=== PATIENT | female | born 1935 | race Caucasian/White ===

== ENCOUNTER 2017-12-29 13:39 | Emergency (ER) | payer OTHER, MEDICARE ==
--- NOTE | 2017-12-29 14:25 | ED GENERAL ADULT ---
History of Present Illness General Chief Complaint: Laceration Procedure Stated Complaint: MECHANICAL FALL, HEAD LAC Source: patient Exam Limitations: no limitations Triage Note: PT TO ED WITH SON FOR LAC TO BACK OF HEAD S/P UNWITNESSED FALL. PT REPORTS SHE LOST HER BALANCE AND FELL. DENIES DIZZINESS. ORIENTED TO PERSON AND PLACE BUT NOT TIME (BASELINE FOR PT). NO ACTIVE BLEEDING IN TRIAGE. ON BABY ASPIRIN, BUT SON UNSURE IF ON ANY BLOOD THINNERS. Triage Nurses Notes Reviewed? yes HPI: 82-year-old woman seen for evaluation for laceration to the back of her head status post unwitnessed fall. This afternoon patient was reportedly in her kitchen when she suddenly had a unwitnessed mechanical fall. At baseline she ambulates with a mostly steady gait with assistance of a rolling walker. Her son was downstairs and heard the fall and immediately came up to find his mother on the floor awake with a minor wound to the back of her head. EMS was contacted and patient was brought to the [facility] ED for evaluation. Presently patient states that her back of her head is somewhat uncomfortable but she otherwise feels fine. 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 (Ana AGUAYO,Charles) Vital Signs & Intake/Output Vital Signs & Intake/Output Vital Signs Date Time Temp Pulse Resp B/P B/P Pulse O2 O2 Flow FiO2 Mean Ox Delivery Rate 12/29 1850 76.0 76 20 182/80 98 Room Air 12/29 1551 98.7 75 20 126/86 99 Room Air 12/29 1354 97.8 81 15 127/76 98 Room Air Room Air Allergies Coded Allergies: Iodinated Contrast- Oral and IV Dye (ANAPHYLAXIS 12/29/17) Reconcile Medications Aspirin (Ecotrin*) 81 MG TABLET. 1 TAB PO DAILY HEART/BLOOD (Reported) Atorvastatin Calcium (Lipitor) 10 MG TABLET 1 TAB PO DAILY CHOLESTEROL ( Reported) Calcium (Elemental-Fr Calcarb) (Calcium) (Unknown Strength) TABLET (Unknown Dose) PO DAILY SUPPLEMENT (Reported) Cholecalciferol (Vitamin D3) (Vitamin D) (Unknown Strength) TABLET (Unknown Dose) PO DAILY SUPPLEMENT (Reported) Cranberry Extract (Cranberry) (Unknown Strength) CAPSULE (Unknown Dose) PO DAILY SUPPLEMENT (Reported) Cyanocobalamin (Vitamin B-12) (Unknown Strength) TABLET (Unknown Dose) PO DAILY SUPPLEMENT (Reported) Gabapentin (Neurontin) 300 MG CAPSULE 1 CAP PO BID UNK (Reported) Hydroxychloroquine Sulfate 200 MG TABLET 1 TAB PO BID UNKNOWN (Reported) Insulin Lispro (Humalog) 100 UNIT/ML VIAL DM (Reported) Levothyroxine Sodium (Synthroid) 112 MCG TABLET 1 TAB PO DAILY THYROID ( Reported) Losartan Potassium (Cozaar) 25 MG TABLET 1 TAB PO DAILY BP (Reported) Omeprazole 10 MG CAPSULE.DR 1 CAP PO DAILY GI (Reported) Potassium Chloride 10 MEQ TAB.ER.PRT 1 TAB PO DAILY SUPPLEMENT (Reported) (Lonny Palmer MD) Past History Travel History Traveled to [place] past 21 day No Medical History Any Pertinent Medical History? see below for history Neurological: TIA WITH APHASIA Cardiovascular: hypertension Endocrine: diabetes Surgical History Surgical History: unobtainable Psychosocial History What is your primary language Wolof Tobacco Use: Never used Family History Hx Contributory? No (Charles Perez MD) Review of Systems Review of Systems Constitutional: Reports: see HPI. (Charles Perez MD) Physical Exam Physical Exam General Appearance: well developed/nourished, no apparent distress, alert, awake , comfortable Comments: General - well developed, obese elderly woman in no acute distress HEENT -1.5 inch linear laceration to posterior scalp without any obvious retained material, no palpable crepitus or hematoma, PERRL, EOMI, anicteric sclera Neck- Supple, no JVD/HJR, no bruits, trachea midline Cardio - S1, S2 w/o murmurs/gallops/rubs; regular rate and rhythm Resp - Clear to auscultation bilaterally GI - Soft, nontender, nondistended, bowel sounds present Neuro - Awake and alert, CN II - XII intact, speech somewhat aphasic but baseline, strength 5/54, gait somewhat unsteady Extremities - No edema, pulses intact Core Measures ACS in differential dx? No CVA/TIA Diagnosis: No Sepsis Present: No Sepsis Focused Exam Completed? No (Charles Perez MD) Progress Differential Diagnoses I considered the following diagnoses in my evaluation of the patient: Mechanical fall, laceration, head strike, syncope, near syncope, arrhythmia, CVA, TIA, dehydration Initial ED EKG: LBBB Comments: 82-year-old woman with multiple medical problems seen for evaluation status post unwitnessed mechanical fall at home. She was found by her son immediately who is downstairs who found her on the floor and helped her up. She has baseline aphasia secondary to her TIA/CVA approximately 1.5 years ago. She was apparently not confused and did not become incontinent of her bowels or bladder. Presently patient feels well and denies any chest pain, trouble breathing, or abdominal pain. Vital signs remain within normal limits. Physical examination demonstrates a linear laceration to the back of her head without any other signs of trauma. Complete neurologic examination other than aphasia is unremarkable. CBC, serum chemistry are significant only for elevated glucose to 353 and otherwise normal. Troponin I is <0.[address] head/cervical spine without IV contrast demonstrates no acute intracranial pathology other than a completely opacified right middle ear new from previous imaging. EKG 2 demonstrates wide QRS with ST segment elevation across the precordium suggestive of a IVCD versus left bundle branch block. Clinically patient had an unwitnessed fall of unclear etiology. Patient believes that she simply tripped over her feet when using a rolling walker. Her son reports that at baseline she is able to get around without any real difficulty and feels that his mother is at baseline. They report that she has an "abnormal EKG" and they follow a forest management teacher in [facility]. Patient is being discharged home with instruction to follow-up with her primary care provider. (Ana AGUAYO,Charles) Plan of Care: Orders Procedure Date/time Status TROPONIN LEVEL 12/29 1800 Complete EKG 12/29 1800 Active Add-on Test (ER Only) 12/29 1457 Active CREATINE PHOSPHOKINASE 12/29 1415 Complete URINALYSIS 12/29 1352 Complete TROPONIN LEVEL 12/29 1352 Complete COMPREHENSIVE METABOLIC PANEL 12/29 1352 Complete CBC WITHOUT DIFFERENTIAL 12/29 135 Complete EKG 12/29 135 Active Laboratory Tests 12/29/17 1757: Troponin I 0.01 12/29/17 1630: Urine Color YEL, Urine Clarity HAZY H, Urine pH 6.0, Ur Specific [place] 1.020, Urine Protein NEG, Urine Ketones NEG, Urine Nitrite POS H, Urine Bilirubin NEG, Urine Urobilinogen 0.2, Ur Leukocyte Esterase SMALL H, Ur Microscopic SEDIMENT EXAMINED, Urine RBC RARE, Urine WBC 5-10 H, Ur Epithelial Cells FEW, Urine Bacteria PACKD H, Urine Mucus RARE, Urine Hemoglobin NEG, Urine Glucose >=1000 H 12/29/17 1415: Anion Gap 10, Estimated GFR > 60, BUN/Creatinine Ratio 26.3 H, Glucose 352 H, Calcium 8.5, Total Bilirubin 1.2, AST 60 H, ALT 62 H, Alkaline Phosphatase 93, Creatine Kinase 104, Troponin I 0.01, Total Protein 6.2 L, Albumin 3.8, Globulin 2.4, Albumin/Globulin Ratio 1.6, CBC w Diff NO MAN DIFF REQ, RBC 4.99, MCV 85.7, MCH 28.8, MCHC 33.6, RDW 13.1, MPV 9.2, Gran % 71.6, Lymphocytes % 22.2, Monocytes % 4.5, Eosinophils % 1.3, Basophils % 0.4, Absolute Granulocytes 6.4, Absolute Lymphocytes 2.0, Absolute Monocytes 0.4, Absolute Eosinophils 0.1, Absolute Basophils 0 (Lonny Palmer MD) Departure Departure Disposition: HOME OR SELF CARE Condition: Stable Clinical Impression Primary Impression: Fall Secondary Impressions: Laceration Referrals: Libertad AGUAYO,Pancho Erazo (PCP/Family) Additional Instructions: Stay hydrated. Continue all your previous medications. Avoid falling. Follow- up with your primary care provider and forest management teacher after discharge. Call 911 or return to the ED should her symptoms worsen. Return to the ED in 10-14 days for wound check/staple removal. Departure Forms: Customer Survey General Discharge Information (Charles Perez MD) Resident Co-Sign Statement Statement: ED Attending supervision documentation- I saw and evaluated the patient. I have also reviewed all the pertinent lab results and diagnostic results. I agree with the findings and the plan of care as documented in the Resident's documentation. x I have reviewed the ED Record and agree with the Resident's documentation. [] Additions or exceptions (if any) to the Resident's note and plan are summarized below: [] (Lonny Palmer MD) Procedures Laceration/Wound Repair Laceration/Wound Repair: Wound Location: head Wound's Depth, Shape: linear Wound Length (cm): 3 Wound Explored: clean, no foreign body removed Irrigated w/ Saline (ccs): 100 Betadine Prep? Yes Anesthesia: 1% lidocaine Volume Anesthetic (ccs): 5 Wound Debrided: minimal Wound Repaired With: [place] Suture Size/Type: gela Number of Sutures: 4 Layer Closure? No Sterile Dressing Applied: No Splint Applied? No By Who? by me (Ana AGUAYO,Charles) Critical Care Note Critical Care Note Critical Care Time: 30-74 min (Charles Perez MD)
[2017-12-29 14:35] LABS: ABSOLUTE BASOPHIL COUNT 0 /CUMM (0.0-0.2); ABSOLUTE EOSINOPHIL COUNT 0.1 /CUMM (0.0-0.7); ABSOLUTE GRANULOCYTE CT 6.4 /CUMM (1.4-6.5); ABSOLUTE MONOCYTE COUNT 0.4 /CUMM (0.10-0.60); BASOPHIL % 0.4 % (0.0-2.0); EOSINOPHIL % 1.3 % (0-5); GRANULOCYTE % 71.6 % (42.2-75.2); HEMATOCRIT 42.7 % (37-47); MEAN CORPUSCULAR HGB 28.8 PG (27.0-31.0); MEAN CORPUSCULAR HGB CONC 33.6 G/DL (33.0-37.0); MEAN CORPUSCULAR VOLUME 85.7 FL (81.0-99.0); MEAN PLATELET VOLUME 9.2 FL (7.4-10.4); PLATELET COUNT 391 /CUMM (130-400); RBC DISTRIBUTION WIDTH 13.1 % (11.5-14.5); RED BLOOD CELL CT 4.99 /CUMM (4.20-5.40)
--- NOTE | 2017-12-29 15:44 | CT SCAN REPORT ---
EXAMINATION: CT HEAD WITHOUT CONTRAST CT OF THE CERVICAL SPINE WITHOUT CONTRAST CLINICAL INFORMATION: 82-year-old female with history of unwitnessed fall, trauma to the head. COMPARISON: CT of the head done on 07/16/2016. TECHNIQUE: Noncontrast CT scan of the head and cervical spine, using standard protocol. Multiplanar reconstructed images are obtained. Multiplanar reconstructed images are also obtained. FINDINGS: CT OF THE HEAD: Mild age-appropriate diffuse cortical atrophy and mild chronic microvascular deep white matter ischemic changes are present, unchanged since 07/16/2016. Specifically, no evidence of intra-axial mass, mass effect, extra-axial fluid collection, midline shift, acute intraparenchymal hemorrhage and/or acute infarction present. Both orbital globes, extraocular muscles, optic nerves appear bilaterally symmetric and are unremarkable. The visualized paranasal sinuses are unremarkable. Near complete sclerosis of the right mastoid air cells, unchanged. The right middle ear cavity is completely opacified with soft tissues, new finding since 07/16/2016. The left-sided mastoid air cells appear well-aerated, unchanged. CT OF THE CERVICAL SPINE: Mid to lower cervical [id number] dextroscoliosis is seen. There is straightening of the mid to upper cervical spine present with loss of cervical lordosis. The posterior appendages are intact. The height of the cervical vertebrae is well maintained. 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 Multilevel moderate degenerative spondylosis related changes are noted at C4-C5 through C6-C7. The prespinal soft tissues appear unremarkable. Both lung apices are clear. IMPRESSION: 1. No acute intracranial pathology. 2. No acute posttraumatic changes are present within the cervical spine. 3. Incidental note is made of complete opacification of the right middle ear cavity, new finding since prior study dated 07/16/2016. Note is also made of near complete sclerosis of the right mastoid air cells however, appear unchanged since prior study.
[2017-12-29] MEDS ORDERED: NEURONTIN300 M1 PO (18:34)
[2017-12-29] MEDS ORDERED: POTASSIUM CHLO10 ME5 PO (18:34)
[2017-12-29] MEDS ORDERED: COZAAR25 M1 PO (18:34)
[2017-12-29] MEDS ORDERED: LIPITOR10 M1 PO (18:35)
[2017-12-29] MEDS ORDERED: HUMALOG100 UNIT/2 SC (18:35)
[2017-12-29] MEDS ORDERED: OMEPRAZOLE10 M1 PO (18:35)
[2017-12-29] MEDS ORDERED: HYDROXYCHLOROQ200 M2 PO (18:35)
[2017-12-29] MEDS ORDERED: SYNTHROID112 MCG PO (18:36)
[2017-12-29] MEDS ORDERED: ASPIRIN EC81 M1 PO (18:40)
[2017-12-29] MEDS ORDERED: CRANBERRY425 MG PO (18:40)
[2017-12-29] MEDS ORDERED: VITAMIN D2000 UNI1 PO (18:40)
[2017-12-29] MEDS ORDERED: VITAMIN B-121000 MC3 PO (18:40)
[2017-12-29] MEDS ORDERED: CALCIUM600 M3 PO (18:41)
[2017-12-29 18:50] VITALS: BP 182/80
== END 2017-12-29 19:07 ==
LOC: ERH 13:39
PROVIDERS: Physician Assistant Medical
DX: S01.01XA Laceration without foreign body of scalp, initial encounter (principal); W19.XXXA Unspecified fall, initial encounter; Y92.000 Kitchen of unspecified non-institutional (private) residence as the place of occurrence of the external cause; Y93.9 Activity, unspecified; I10 Essential (primary) hypertension; E11.9 Type 2 diabetes mellitus without complications; Z79.84 Long term (current) use of oral hypoglycemic drugs
CPT/HCPCS: 81001; 93005; 93010; J2001